=== PATIENT | male | born 1975 | race Caucasian/White ===

== ENCOUNTER 2023-09-08 10:37 | Outpatient (AMB) | payer MEDICAID, SELFPAY ==
--- NOTE | 2023-09-08 11:24 | MHC.PC.OV ---
Vital Signs 09/08/23 11:29 Height 6 ft Weight 195 lb 8 oz BMI 26.5 BP 140/78 H Blood Pressure Location Lt brachial Position Sitting Pulse 73 Pulse Source Pulse Oximeter Pulse Oximetry (%) 98 Oxygen Delivery Method Room Air Intake Visit Reasons: Discharge f/u from clinic Intake Note: Patient is here for follow up from discharge from detox, and states he is living with his son now. He states his blood pressure has been up on down lately. Allergies aspirin [Aspirin] Allergy (Unknown, Unverified 09/08/23 11:33) RASH penicillin G Allergy (Unknown, Verified 09/08/23 11:33) Anaphylaxis Penicillins Allergy (Unknown, Unverified 09/08/23 11:33) ANAPHYLAXIS pineapple [Pineapple] Allergy (Unknown, Unverified 09/08/23 11:33) RASH Medication List - Last Reconciled 09/08/23 by Jose Alfreod Pacheco MD clonidine HCl 0.1 mg PO TID quetiapine 100 mg PO BEDTIME quetiapine mg PO trazodone 100 mg PO BEDTIME Tobacco use date assessed: 09/08/23 Dental Screening Dental Screen Date: 09/08/23 Did you have a dental visit in the last 12 months?: Yes Did you have a dental problem in the last 6 months where you did not have access to dental care?: No Was dental information given to patient?: Patient has dentist HPI Discharge f/u from clinic HPI Details New Patient? ?? Prior PCP:? Last office visit/CPE:? Acute issue(s):? Depression/Anxiety -Denies any SI/HI today. He states he has people he can talk to. Elevated Blood pressure ?? PMHx:?Varicose veins, alcoholism, depression/anxiety SurgHx:? FHx:? SocHx:? PFSH Medical History (Updated 09/08/23 @ 12:06 by Guevara Jones) Varicose veins of both legs with edema Drug dependence Alcoholism Surgical History (Updated 09/08/23 @ 11:41 by Key Davis CMA) S/P tonsillectomy Family History (Updated 09/08/23 @ 11:44 by Key Davis CMA) Mother Cardiovascular disease Varicose veins of both legs with edema Mental health disorder Father Prostate cancer Maternal Uncle Mental health disorder Social History (System 10/23/21 @ 12:54 by Gilma So) Housing: Apartment Patient Tobacco Use Status: Former Tobacco user e-Cigarette/Vaping Use: Never Used service: No Current occupational status: unemployed Cognitive needs: No Hearing needs: No Vision needs: No Questionnaire PHQ-9 Over the last 2 weeks, how often have you been bothered by any of the following problems? 1. Little interest or pleasure in doing things: nearly every day 2. Feeling down, depressed, or hopeless: nearly every day 3. Trouble falling or staying asleep, or sleeping too much: nearly every day 4. Feeling tired or having little energy: nearly every day 5. Poor appetite or overeating: nearly every day 6. Feeling bad about yourself - or that you are a failure or have let yourself or your family down: nearly every day 7. Trouble concentrating on things, such as reading the newspaper or watching television: nearly every day 8. Moving or speaking so slowly that other people could have noticed. Or the opposite - being so fidgety or restless that you have been moving around a lot more than usual: nearly every day 9. Thoughts that you would be better off or of hurting yourself in some way: several days Total score: 25 Depression Screening Interpretation: Positive Depression Screening Done: Yes 87387 - PHQ-9 Billing: Yes Source: Developed by Drs. Martínez Samayoa, Becky Donald, Parmjit Tay and colleagues, with an educational mundo from [employer]. Thrive Questionnaire Date Thrive assessed: 09/08/23 I am a: Patient What is your living situation today?: I have a steady place to live Within the past 12 months, did the food you bought not last and you didn't have the money to get more?: Never true Within the past 12 months, did you worry whether your food would run out before you got money to buy more?: Never true Do you have trouble paying for medicines?: I choose not to answer this question Do you have trouble getting transportation to medical appointments?: I choose not to answer this question Do you have trouble paying your heating and electricity bill?: I choose not to answer this question Do you have trouble taking care of your child, family member or friend?: I choose not to answer this question Do you have trouble with day-to-day activities such as bathing, preparing meals, shopping, managing finances, etc.?: I choose not to answer this question Are you currently unemployed and looking for a job?: I choose not to answer this question Are you interested in more education?: I choose not to answer this question THRIVE Score: 0 AUDIT C Alcohol Use Questionnaire (AUDIT-C) 1. How often do you have a drink containing alcohol?: Monthly or less (Patient stopped after treatment.) 3. How often do you have six or more drinks on one occasion?: Never Total Score: 1 GERARDO-7 AMB Questionnaire GERARDO-7 Date GERARDO - 7 assessed: 09/08/23 Feeling nervous, anxious, or on edge: 3 = Nearly every day Not being able to stop or control worryin = Nearly every day Worrying too much about different things: 3 = Nearly every day Trouble relaxin = Nearly every day Being so restless that it is hard to sit still: 3 = Nearly every day Becoming easily annoyed or irritable: 3 = Nearly every day Feeling afraid as if something awful might happen: 3 = Nearly every day Total GERARDO-7 score (0-4 normal; 5-9 mild; 10-14 moderate; 15-21 severe): 21 Source: Developed by Drs. Martínez Samayoa, Becky Donald, Parmjit Tay and colleagues, with an educational mundo from [employer]. GERARDO-7 Assessment Billing GERARDO-7 Assessment Tool: GERARDO-7 Assessment 57418 Review of Systems Const Denies chills, Denies fatigue, Denies fever(s), Denies headache(s) and Denies weakness ENT Denies dizziness and Denies headache(s) Card Denies chest pain, Denies lightheadedness, Denies dyspnea and Denies other (Palpitations) Resp Denies cough, Denies dyspnea, Denies wheezing and Denies other ( shortness of breath) Musc Denies numbness and Denies tingling Neuro Denies dizziness, Denies headache(s), Denies numbness, Denies tingling, Denies paresthesias and Denies weakness Psych Reports anxiety and Reports depression Endo Denies fatigue Aller/Immun Denies wheezing Physical exam (Primary Care) Vital Signs: Last Vital Signs Pulse 73 06/12/24 11:29 BP 140/78 H 06/12/24 11:29 Pulse Ox 98 09/08/23 11:29 Oxygen Delivery Method Room Air 09/08/23 11:29 BMI result Body Mass Index 26.5 Tobacco/Smoking Status: Tobacco use Status Tobacco use date assessed 09/08/23 09/08/23 11:49 Patient Tobacco Use Status Former Tobacco user 09/08/23 11:49 e-Cigarette/Vaping Use Never Used 09/08/23 11:49 PHQ-9: PHQ-9 Score PHQ-9: Total score 25 09/08/23 11:55 Depression Screening Interpretation: Positive Thrive Assessment: Date of Thrive Assessment Date Thrive assessed 09/08/23 09/08/23 11:49 Const General: no acute distress and well developed Nutritional Appearance: well nourished Orientation/consciousness: patient oriented x3 HENMT Head: Yes normocephalic and Yes atraumatic Eyes General: appearance normal, both eyes and all related structures Pupils: Equal, round and reactive pupils present EOM: EOMs intact bilaterally Resp Effort & Inspection: normal respiratory effort Auscultation: clear to auscultation bilaterally Cardio Rate: regular rate Rhythm: regular rhythm Heart sounds: S1 normal heart sound present, S2 normal heart sound present, no gallops, no murmurs and no rubs Neuro General: patient oriented x3 and gait normal Cranial nerves: Yes Equal, round and reactive pupils present Psych Affect: normal affect Assessment and Plan Assessment & Plan (1) Hypertension: Code(s): I10 - Essential (primary) hypertension Plan: Blood?pressure?is?elevated. Will?start?losartan Patient?recently?through?detox?and?this?may?be?related?to?abstinence?from?alcohol. ?Using?low?dose?losartan?and?we?may?be?able?to?withdraw?this?at?some?point Goal?is?less?than?140/90 (2) Alcoholism: Code(s): F10.20 - Alcohol dependence, uncomplicated Plan: Continue?outpatient?program Referred?to?Psychiatry I?let?him?know?that?we?could?refer?him?to?addiction?medicine?if?needed Continue?clonidine?Seroquel?and?trazodone?as?prescribed (3) Depression with anxiety: Code(s): F41.8 - Other specified anxiety disorders Plan: Significant?depression?and?anxiety?with?some?thoughts?of?SI?but?no?plan. Patient?contracts?for?safety Referred?to?Psychiatry Continue?Seroquel?trazodone?and?clonidine.??Added?hydroxyzine?which?he?had?had?while?in?detox. (4) Varicose veins of both legs with edema: Code(s): I83.893 - Varicose veins of bilateral lower extremities with other complications Plan: Very?large?varicose?veins,?right?versus?left Painful Referred?to?vascular?surgeon (5) Laboratory exam ordered as part of routine general medical examination: Code(s): Z00.00 - Encounter for general adult medical examination without abnormal findings Plan: Check?labs Orders: Orders Microalbumin, Random (w Creat) Today I10 - Essential (primary) hypertension TSH reflex Free T4 Today Z00.00 - Encounter for general adult medical examination without abnormal findings UA and rflx microscopic Today Z00.00 - Encounter for general adult medical examination without abnormal findings Hepatitis B,C Profile Today Z11.3 - Encounter for screening for infections with a predominantly sexual mode of transmission CT NG by PCR Today Z11.3 - Encounter for screening for infections with a predominantly sexual mode of transmission Syphilis Screen Today Z11.3 - Encounter for screening for infections with a predominantly sexual mode of transmission T Spot TB Today Z11.1 - Encounter for screening for respiratory tuberculosis Comprehensive [place]. Panel Fast Today Z00.00 - Encounter for general adult medical examination without abnormal findings Complete Blood Count Auto Diff Today Z00.00 - Encounter for general adult medical examination without abnormal findings Lipid Panel Today Z00.00 - Encounter for general adult medical examination without abnormal findings Prostate Specific Antigen Scr Today Z12.5 - Encounter for screening for malignant neoplasm of prostate HIV Ab/Ag Today Z11.3 - Encounter for screening for infections with a predominantly sexual mode of transmission Hemoglobin A1c Today R73.01 - Impaired fasting glucose Referrals Psychiatry Outpatient Consultation Service F10.20 - Alcohol dependence, uncomplicated, F41.8 - Other specified anxiety disorders Vascular Surgery Referral I83.893 - Varicose veins of bilateral lower extremities with other complications Medications: New losartan 25 mg PO DAILY 30 days 30 tabs 2RF trazodone 100 mg PO BEDTIME 30 days 30 tabs 1RF hydroxyzine HCl 50 mg PO BID 30 days PRN 30 tabs 0RF anxiety clonidine HCl 0.1 mg PO TID 30 days 90 tabs 1RF quetiapine 100 mg PO BEDTIME 90 days 90 tabs 1RF Coding Level of Care Code New Pt Level 4 (66005) Diagnoses Hypertension I10 Alcoholism F10.20 Depression with anxiety F41.8 Varicose veins of both legs with edema I83.893 Laboratory exam ordered as part of routine general medical examination Z00.00 Additional Codes GERARDO-7 Assessment Billing - GERARDO-7 Assessment Tool: GERARDO-7 Assessment 52428 ([id number])
[2023-09-08 11:29] VITALS: BP 140/78; PULSE 73; O2SAT 98; BMI 26.5
== END 2023-09-08 12:24 | disposition home or self-care (01) ==
PROVIDERS: PCP Family Medicine; Visit Provider Family Medicine
DX: I10 Essential (primary) hypertension (principal); F10.20 Alcohol dependence, uncomplicated; F41.8 Other specified anxiety disorders; I83.893 Varicose veins of bilateral lower extremities with other complications
CPT/HCPCS: 96127; 99204

== ENCOUNTER 2023-09-13 09:52 | Outpatient (AMB) | payer OTHER, SELFPAY ==
--- NOTE | 2023-09-13 09:46 | A.OFFPSYCH_ITS ---
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 Allergies aspirin [Aspirin] Allergy (Unknown, Unverified 09/08/23 11:33) RASH penicillin G Allergy (Unknown, Verified 09/08/23 11:33) Anaphylaxis Penicillins Allergy (Unknown, Unverified 09/08/23 11:33) ANAPHYLAXIS pineapple [Pineapple] Allergy (Unknown, Unverified 09/08/23 11:33) RASH Medication List - Last Reconciled 09/13/23 by Iliana Arzate APRN clonidine HCl 0.1 mg PO TID 30 days hydroxyzine HCl 50 mg PO BID PRN 30 days losartan 25 mg PO DAILY 30 days quetiapine mg PO quetiapine 100 mg PO BEDTIME 90 days trazodone 100 mg PO BEDTIME 30 days HPI- Psychiatric Chief Complaint: consult HPI Narrative: Pt is 48 yr old father of 2 children age 18 and 15 referred by [facility] for bridge treatment until he can see psychiatrist at [facility]. Pt presents neatly dressed and well groomed; he is very anxious. He is cooperative. speech is pressured. He reports many years of psychiatric difficulties and alcohol abuse. he says that this episode happened on Mother's day; he says he drank like a maniac. and then became suicidal. his friend called an ambulance and he ended up in inpatient treatment at [facility] for 25 days. He was discharged on seroquel 100mg at bedtime seroquel 25mg TID trazodone 100mg at bedtime, clonidine 0.1 mg TID, Hydroxyzine 50 mg TID. he says he is still anxious every day; he says the clonidine and hydroxyzine do nothing to help his anxiety; he reports sleeping only from 10pm to 1 am even with the seroquel and the trazodone. pt reports frequent nightmares. He repots feeling anxious, nervous, wanting to isolate, can't control if he is happy or sad. he reports feeling great for hours and then suddenly sad. he reports leaving the house and just walking and walking for up to 10 days and then when he feels better he return to the house; he does not know why he does this. He reports 75% of the time he feels depressed, sad, guilty, and grieving, he says people often call him crazy. He reports hearing voices since he was 3 yrs old,. he sees a man in a fancy suit and hears him talking to him, he is critical and often laughing at him. he does not recognize him. he has been seeing the same man talking to him since he was 3 yrs old. His grandmother who raised him would tell him not to listen to the voice. His grandfather was also supportive and told him to try to ignore the voice. He reports he was very hyperactive and sometimes still is. he is easily overwhelmed by yelling, anyone screaming, too much talking, or loud music. he reports he often feels like fighting. He reports impulsive behavior such as burning all his clothes recently when he was angry. He reports losing jobs due to not showing up, throwing things at work, fighting with others at work. He is 30 + days sober now. he wants help and wants to remain sober; he has a sober job coaching and his family is supportive- the mother of his children and his 2 children. He reports he ahs not done blood work yet because he is nervous about needles ; he says he had a lot of blood work at [facility] and he signed a release of info to request records Past Psychiatric History: Many psychiatric hospitalization including at least 3 on M5 in 2010 2011. he reports one intentional overdose on fentanyl in [facility] 2 yrs ago. he was seen in [place] and released. He reports sober from 2011 through 2016. past med trials of celexa abilify and clonazepam- he does not recall any others. Subjective Subjective Subjective Medication Compliance: Yes Side effects from medications: No Review of Systems Medical Review of Systems: unchanged Mental Status Exam Mental Status Exam Patient Appearance: Well Grooomed and Appropriate Patient Orientation: Person, Place, Time and Situation Level of Consciousness: Awake, Appropriate and Alert Patient Behavior: Appropriate, Talkative, Restless and Anxious Mood Description: Anxious and Sad Affect Description: Anxious and Sad Patient Cognition Impaired: No Ability to Follow Directions: Good Speech Pattern: Clear, Appropriate, Excessive and Pressured Memory Description: Episodic Impaired Hallucinations: Auditory (has insight not real) and Visual (has insight not real ) Delusions: Not Present Thought Process: Intact Thought Content: positive for Intact, positive for Racing, positive for Goal Oriented, positive for Preoccupation and positive for Loose Associations Judgement: Fair Assessment and Plan Assessment & Plan (1) Bipolar disorder, current episode mixed: Status: Acute Code(s): F31.60 - Bipolar disorder, current episode mixed, unspecified (2) Post traumatic stress disorder (PTSD): Status: Acute Code(s): F43.10 - Post-traumatic stress disorder, unspecified Plan Plan: seroqule XR 200mg at bedtime seroqule 100mg at bedtime seroqule 25 mg 3 times a day start lithiium 300mg twice a day trazodone 100mg at bedtime Clonidine 0.1mg # times a day as needed stop hydroxyzine 50mg EKG ordered release signed for [facility] and will request records EAEDC form signed return in 2 weeks Medications: New lithium carbonate 300 mg PO BID 60 caps 0RF quetiapine ER (Seroquel XR) 200 mg PO BEDTIME 30 tabs 0RF Orders: Orders ECG 12 lead EKG Today I10 - Essential (primary) hypertension, Z79.899 - Other alf (current) drug therapy Counseling and coordination of Care Pt. Self Management counselin Step program, Maintenance-social rhythm, Mod caffeine/ETOH intake, Sleep hygiene and General coping skills Medication management counseling: Effectiveness, Side effects, Dosing range, Duration, Drug interaction and Adherence Diagnosis and Prognosis Counseling: Accuracy of diagnosis, Prognosis over time, Impact of diagnosis on life functions, Impact of family relationship, Problematic behaviors secondary to diagnosis and Adequacy of current interventions Details: I spent 75 minutes reviewing the record, seeing the patient and documenting in the medical record. Counseling provided to the patient/caregiver as outlined below. Addressed patient/caregiver concerns regarding current medication regime including effective adherence. Addressed patient/caregiver concerns regarding diagnosis and prognosis including accuracy of diagnosis, prognosis over time, impact of diagnosis. Addressed patient/caregiver concerns regarding impact of recent stressors. [facility] Medical History (Updated 09/13/23 @ 14:09 by Iliana Arzate APRN) Varicose veins of both legs with edema Drug dependence Alcoholism Surgical History (Updated 09/08/23 @ 11:41 by Key Davis CMA) S/P tonsillectomy Family History (Updated 09/08/23 @ 11:44 by Key Davis CMA) Mother Cardiovascular disease Varicose veins of both legs with edema Mental health disorder Father Prostate cancer Maternal Uncle Mental health disorder Social History (System 10/23/21 @ 12:54 by Gilma So) Housing: Apartment Patient Tobacco Use Status: Former Tobacco user e-Cigarette/Vaping Use: Never Used service: No Current occupational status: unemployed Cognitive needs: No Hearing needs: No Vision needs: No Social History: lives with mother of his children, his 18 yr old son and 15 yr old dtr. he worked most recently at [employer] but was let go after missing many days of work. pt reports he was literally thrown away by his bio mother; his grandmother rescued him and he was primarily raised by grandparents whom he says treated him well. [place] was raised [place] He did well ins school earning all As despite getting in trouble for being very hyper and fighting all the time. He was recruited by [employer] but bio father refused to let him go. he feels this ruined his life. he then came to [place] with a girlfriend. He has struggled since then. Substance History: episodic alcohol abuse, uses THC 2-3 times a month, used cocaine at age 16 for 2-3 yrs, fentanyl once to hurt himself Trauma History: abandoned by mother Coding Level of Care Code Psych Diag Eval w/Med (94903) Diagnoses Bipolar disorder, current episode mixed F31.60 Post traumatic stress disorder (PTSD) F43.10
== END 2023-09-13 11:01 | disposition home or self-care (01) ==
LOC: HO.HOP 09:52
PROVIDERS: PCP Family Medicine; Visit Provider Clinical Nurse Specialist Psychiatric/Mental Health
DX: F31.60 Bipolar disorder, current episode mixed, unspecified (principal); F43.10 Post-traumatic stress disorder, unspecified
CPT/HCPCS: 90792

== ENCOUNTER → 2023-09-13 09:52 | Outpatient (BNVA) | payer OTHER, SELFPAY | PROVIDERS: PCP Family Medicine; Visit Provider Clinical Nurse Specialist Psychiatric/Mental Health | DX: F31.60 Bipolar disorder, current episode mixed, unspecified (principal); F43.10 Post-traumatic stress disorder, unspecified | CPT/HCPCS: 90792 ==

== ENCOUNTER 2023-11-25 13:25 | Outpatient (AMB) | payer OTHER, SELFPAY ==
--- NOTE | 2023-11-25 13:39 | A.OFFPSYCH_ITS ---
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 Allergies aspirin [Aspirin] Allergy (Unknown, Unverified 09/08/23 11:33) RASH penicillin G Allergy (Unknown, Verified 09/08/23 11:33) Anaphylaxis Penicillins Allergy (Unknown, Unverified 09/08/23 11:33) ANAPHYLAXIS pineapple [Pineapple] Allergy (Unknown, Unverified 09/08/23 11:33) RASH Medication List - Last Reconciled 11/25/23 by Iliana Arzate APRN lithium carbonate 300 mg PO BID losartan 25 mg PO DAILY 30 days quetiapine mg PO quetiapine 100 mg PO BEDTIME 90 days trazodone 100 mg PO BEDTIME 30 days HPI- Psychiatric Chief Complaint: follow up HPI Narrative: In interim, pt went to [facility] after relapsing and taking meds with alcohol; he completed program there and then went to [facility] for 25 days; he s med compliant and taking lithium 300 twice a day, seroquel 125mg daily, naltrexone 50mg daily. he is not taking hydroxyzine as he reports it doesnt help. he s anxious every day, has panic attacks. passive SI no HI no plan or intent Past Psychiatric History: Many psychiatric hospitalization including at least 3 on M5 in 2010 2011. he reports one intentional overdose on fentanyl in [facility] 2 yrs ago. he was seen in Ed and released. He reports sober from 2011 through 2016. past med trials of celexa abilify and clonazepam- he does not recall any others. Subjective Subjective Subjective Medication Compliance: Yes Side effects from medications: No Review of Systems Medical Review of Systems: unchanged Mental Status Exam Mental Status Exam Patient Appearance: Well Grooomed and Appropriate Patient Orientation: Person, Place, Time and Situation Level of Consciousness: Awake and Appropriate Patient Behavior: Appropriate Mood Description: Anxious and Sad Affect Description: Anxious and Sad Patient Cognition Impaired: No Ability to Follow Directions: Good Speech Pattern: Clear and Perseverating Memory Description: Intact Hallucinations: None Thought Process: Intact and Goal Oriented Thought Content: positive for Intact and positive for Goal Oriented Judgement: Fair Assessment and Plan Assessment & Plan (1) half-way use of drug: Status: Acute Code(s): Z79.899 - Other prison (current) drug therapy (2) Post traumatic stress disorder (PTSD): Status: Acute Code(s): F43.10 - Post-traumatic stress disorder, unspecified (3) Bipolar disorder, current episode mixed: Status: Acute Code(s): F31.60 - Bipolar disorder, current episode mixed, unspecified Medications: New olanzapine 2.5 mg PO DAILY 30 tabs 0RF thiamine HCl (vitamin B1) 100 mg PO DAILY 30 tabs 1RF Changed From lithium carbonate 300 mg PO BID 60 caps 0RF To lithium carbonate 600 mg (2 x 300 mg) PO BID 120 caps 1RF Orders: Orders Complete Blood Count Auto Diff 11/25/23 Z79.899 - Other prison (current) drug therapy Vitamin B12 11/25/23 Z79.899 - Other termite control technician (current) drug therapy Folate 11/25/23 Z79.899 - Other prison (current) drug therapy Zenda 11/25/23 Z79.899 - Other prison (current) drug therapy Comprehensive [place]. Panel Fast 11/25/23 Z79.899 - Other prison (current) drug therapy Counseling and coordination of Care Pt. Self Management counseling: Maintenance-social rhythm, Med illness tx adherence, Mod caffeine/ETOH intake, Sleep hygiene, Behavior activation, General coping skills and Problem solving Medication management counseling: Effectiveness, Side effects, Dosing range, Duration, Drug interaction and Adherence Diagnosis and Prognosis Counseling: Accuracy of diagnosis, Prognosis over time, Impact of diagnosis on life functions, Impact of family relationship, Problematic behaviors secondary to diagnosis and Adequacy of current interventions Details: I spent 40 minutes reviewing the record, seeing the patient and documenting in the medical record. Counseling provided to the patient/caregiver as outlined below. Addressed patient/caregiver concerns regarding current medication regime including effective adherence. Addressed patient/caregiver concerns regarding diagnosis and prognosis including accuracy of diagnosis, prognosis over time, impact of diagnosis. Addressed patient/caregiver concerns regarding impact of recent stressors. [facility] Medical History (Updated 09/13/23 @ 14:09 by Iliana Arzate APRN) Varicose veins of both legs with edema Drug dependence Alcoholism Surgical History (Updated 09/08/23 @ 11:41 by Key Davis CMA) S/P tonsillectomy Family History (Updated 09/08/23 @ 11:44 by Key Davis CMA) Mother Cardiovascular disease Varicose veins of both legs with edema Mental health disorder Father Prostate cancer Maternal Uncle Mental health disorder Social History (System 10/23/21 @ 12:54 by Gilma So) Housing: Apartment Patient Tobacco Use Status: Former Tobacco user e-Cigarette/Vaping Use: Never Used service: No Current occupational status: unemployed Cognitive needs: No Hearing needs: No Vision needs: No Social History: lives with mother of his children, his 18 yr old son and 15 yr old dtr. he worked most recently at [employer] but was let go after missing many days of work. pt reports he was literally thrown away by his bio mother; his grandmother rescued him and he was primarily raised by grandparents whom he says treated him well. he was raised n [place] He did well ins school earning all As despite getting in trouble for being very hyper and fighting all the time. He was recruited by [facility] but bio father refused to let him go. he feels this ruined his life. he then came to [place] with a girlfriend. He has struggled since then. Substance History: episodic alcohol abuse, uses THC 2-3 times a month, used cocaine at age 16 for 2-3 yrs, fentanyl once to hurt himself Trauma History: abandoned by mother Coding Level of Care Code Est Pt Level 4 (01110) Diagnoses half-way use of drug Z79.899 Post traumatic stress disorder (PTSD) F43.10 Bipolar disorder, current episode mixed F31.60
== END 2023-11-25 14:02 | disposition home or self-care (01) ==
LOC: HO.HOP 13:25
PROVIDERS: PCP Family Medicine; Visit Provider Clinical Nurse Specialist Psychiatric/Mental Health
DX: F31.60 Bipolar disorder, current episode mixed, unspecified (principal); F43.11 Post-traumatic stress disorder, acute; Z79.899 Other long term (current) drug therapy
CPT/HCPCS: 99214

== ENCOUNTER → 2023-11-25 13:25 | Outpatient (BNVA) | payer OTHER, SELFPAY | PROVIDERS: PCP Family Medicine; Visit Provider Clinical Nurse Specialist Psychiatric/Mental Health | DX: F43.10 Post-traumatic stress disorder, unspecified (principal); F31.60 Bipolar disorder, current episode mixed, unspecified; Z79.899 Other long term (current) drug therapy | CPT/HCPCS: 99212 ==

== ENCOUNTER 2023-12-24 13:41 | Outpatient (AMB) | payer OTHER, SELFPAY ==
--- NOTE | 2023-12-24 14:01 | A.OFFPSYCH_ITS ---
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 Allergies aspirin [Aspirin] Allergy (Unknown, Unverified 09/08/23 11:33) RASH penicillin G Allergy (Unknown, Verified 09/08/23 11:33) Anaphylaxis Penicillins Allergy (Unknown, Unverified 09/08/23 11:33) ANAPHYLAXIS pineapple [Pineapple] Allergy (Unknown, Unverified 09/08/23 11:33) RASH Medication List - Last Reconciled 12/24/23 by Iliana Arzate APRN lithium carbonate 600 mg (2 x 300 mg) PO BID losartan 25 mg PO DAILY 30 days olanzapine 2.5 mg PO DAILY quetiapine mg PO quetiapine 100 mg PO BEDTIME 90 days thiamine HCl (vitamin B1) 100 mg PO DAILY trazodone 100 mg PO BEDTIME 30 days HPI- Psychiatric Chief Complaint: follow up HPI Narrative: mood much improved; pt happy calm, optimistic; no pressured speech; no grandiosity; compliant with meds; no side effects; neatly dressed and grooming improved from last visit. no etoh use. Past Psychiatric History: Many psychiatric hospitalization including at least 3 on M5 in 2010 2011. he reports one intentional overdose on fentanyl in [facility] 2 yrs ago. he was seen in [place] and released. He reports sober from 2011 through 2016. past med trials of celexa abilify and clonazepam- he does not recall any others. Subjective Subjective Subjective Medication Compliance: Yes Side effects from medications: No Review of Systems Medical Review of Systems: unchanged Mental Status Exam Mental Status Exam Patient Appearance: Well Grooomed Patient Orientation: Person, Place, Time and Situation Level of Consciousness: Awake Patient Behavior: Appropriate Mood Description: Calm and Cheerful Affect Description: Calm and Cheerful Patient Cognition Impaired: No Ability to Follow Directions: Good Speech Pattern: Clear Memory Description: Intact Hallucinations: None Delusions: Not Present Thought Process: Intact Thought Content: positive for Intact Judgement: Good Assessment and Plan Assessment & Plan (1) Bipolar disorder, current episode mixed: Status: Acute Qualifiers: Psychotic features: without psychotic features Code(s): F31.60 - Bipolar disorder, current episode mixed, unspecified Plan continue lithium continue clonidine continue seroquel continue zyprexa 2.5 mg for panic attacks, over thinking prn Medications: New thiamine HCl (vitamin B1) 100 mg PO DAILY 30 tabs 0RF clonidine HCl 0.1 mg PO TID 90 tabs 0RF Refilled trazodone 100 mg PO BEDTIME 30 tabs 1RF 30 days Orders: Orders [place] 12/24/23 F31.60 - Bipolar disorder, current episode mixed, unspecified, Z79.899 - Other terminologist (current) drug therapy Comprehensive Met. Panel 12/24/23 Z79.899 - Other terminologist (current) drug therapy, F31.60 - Bipolar disorder, current episode mixed, unspecified TSH reflex Free T4 12/24/23 F31.60 - Bipolar disorder, current episode mixed, unspecified, Z79.899 - Other long-term (current) drug therapy Counseling and coordination of Care Pt. Self Management counseling: Maintenance-social rhythm, Mod caffeine/ETOH intake, Sleep hygiene, Behavior activation, General coping skills and Problem solving Medication management counseling: Effectiveness, Side effects, Dosing range, Duration, Drug interaction and Adherence Diagnosis and Prognosis Counseling: Accuracy of diagnosis, Prognosis over time, Impact of diagnosis on life functions, Impact of family relationship, Problematic behaviors secondary to diagnosis and Adequacy of current interventions Details: I spent 40 minutes reviewing the record, seeing the patient and documenting in the medical record. Counseling provided to the patient/caregiver as outlined below. Addressed patient/caregiver concerns regarding current medication regime including effective adherence. Addressed patient/caregiver concerns regarding diagnosis and prognosis including accuracy of diagnosis, prognosis over time, impact of diagnosis. Addressed patient/caregiver concerns regarding impact of recent stressors. [facility] Medical History (Updated 12/24/23 @ 15:41 by Iliana Arzate APRN) Varicose veins of both legs with edema Drug dependence Alcoholism Surgical History (Updated 09/08/23 @ 11:41 by Key Davis CMA) S/P tonsillectomy Family History (Updated 09/08/23 @ 11:44 by Key Davis CMA) Mother Cardiovascular disease Varicose veins of both legs with edema Mental health disorder Father Prostate cancer Maternal Uncle Mental health disorder Social History (System 10/23/21 @ 12:54 by Gilma So) Housing: Apartment Patient Tobacco Use Status: Former Tobacco user e-Cigarette/Vaping Use: Never Used service: No Current occupational status: unemployed Cognitive needs: No Hearing needs: No Vision needs: No Social History: lives with mother of his children, his 18 yr old son and 15 yr old dtr. he worked most recently at [employer] but was let go after missing many days of work. pt reports he was literally thrown away by his bio mother; his grandmother rescued him and he was primarily raised by grandparents whom he says treated him well. he was raised [place] He did well ins school earning all As despite getting in trouble for being very hyper and fighting all the time. He was recruited by [facility] but bio father refused to let him go. he feels this ruined his life. he then came to [place] with a girlfriend. He has struggled since then. Substance History: episodic alcohol abuse, uses THC 2-3 times a month, used cocaine at age 16 for 2-3 yrs, fentanyl once to hurt himself Trauma History: abandoned by mother Coding Level of Care Code Est Pt Level 4 (41509) Diagnoses Bipolar disorder, current episode mixed F31.60 Psychotic features: without psychotic features
== END 2023-12-24 14:39 | disposition home or self-care (01) ==
LOC: HO.HOP 13:41
PROVIDERS: PCP Family Medicine; Visit Provider Clinical Nurse Specialist Psychiatric/Mental Health
DX: F31.60 Bipolar disorder, current episode mixed, unspecified (principal)
CPT/HCPCS: 99214

== ENCOUNTER → 2023-12-24 13:41 | Outpatient (BNVA) | payer OTHER, SELFPAY | PROVIDERS: PCP Family Medicine; Visit Provider Clinical Nurse Specialist Psychiatric/Mental Health | DX: F31.60 Bipolar disorder, current episode mixed, unspecified (principal); Z71.89 Other specified counseling; Z79.899 Other long term (current) drug therapy | CPT/HCPCS: 99212 ==

== ENCOUNTER 2024-01-05 07:39 | Outpatient (REF) | payer MEDICAID, SELFPAY ==
[2024-01-05 07:52] LABS: MANUAL DIFF FLAG NO
[2024-01-05 08:07] LABS: Basophils Percent Auto 0.8 % (0-2); Eosinophils Absolute Auto 0.3 X10*3/uL (0.0-0.4); Eosinophils Percent Auto 6.7 % (0-4); Hematocrit 46.2 % (42.0-52.0); Hemoglobin 15.5 g/dl (14.0-18.0); Imm Gran Abs Auto 0.01 X10*3/uL (0.00-0.03); Imm Gran Pct Auto 0.2 % (0.0-0.4); Lymphocytes Absolute Auto 1.8 X10*3/uL (1.2-4.9); Lymphocytes Percent Auto 35.5 % (20-40); Mean Corpuscular HGB Conc 33.5 g/dl (31.0-36.0); Mean Corpuscular Hemoglobin 31.7 pg (27.0-33.0); Mean Corpuscular Volume 94.5 fL (80.0-98.0); Mean Platelet Volume 10.2 fL (9.4-12.4); Monocytes Absolute Auto 0.4 X10*3/uL (0.1-1.2); Monocytes Percent Auto 8.7 % (2-11); Neutrophils Absolute Auto 2.4 x10*3/uL (2.0-8.3); Neutrophils Percent Auto 48.1 % (45-73); Platelet Count 200 X10*3/uL (160-400); Red Blood Count 4.89 X10*6/uL (4.60-5.80); Red Cell Distribution Width 12.2 % (11.0-16.0); White Blood Count 4.9 X10*3/uL (4.8-10.8)
[2024-01-05 08:12] LABS: INTERNATIONAL NORM RATIO 0.9 (0.9-1.1); Prothrombin Time 10.5 SEC (10.9-12.4)
[2024-01-05 08:23] LABS: Lithium < 0.10 mmol/L (0.60-1.20)
[2024-01-05 08:35] LABS: Alanine Aminotransferase 49 U/L (0-40); Albumin Level 4.3 g/dL (3.5-5.0); Alkaline Phosphatase 85 U/L (39-117); Anion Gap 12 (12-20); Aspartate Amino Transferase 27 U/L (5-37); Bilirubin Total 0.4 mg/dL (0.0-1.0); Blood Urea Nitrogen 15 mg/dL (9-16); Calcium 9.3 mg/dL (8.4-10.2); Carbon Dioxide 28 mmol/L (22-29); Chloride 106 mmol/L (96-108); Estimated Glomerular Filt Rate > 60; Glucose Fasting 109 mg/dL (60-99); Potassium 3.9 mmol/L (3.3-5.1); Sodium 142 mmol/L (135-145); Total Protein 7.3 g/dL (6.5-8.0)
[2024-01-05 08:50] LABS: Hepatitis A Antibody IgG Nonreactive (Nonreactive); ~Hepatitis A Antibody IgG 0.29 S/CO (0.00-0.99)
[2024-01-05 08:53] LABS: HBS Num1 0.34 mIU/mL (0-7.99); HBc Num1 0.11 S/CO (0.00-0.79); HBsAGNum1 1.01 S/CO (0.00-0.99); HIV AB/AG Nonreactive (Nonreactive); HIV Num 1 0.05 S/CO (0.00-0.99); Hepatitis B Core Antibody Nonreactive (Nonreactive); TSH reflex Free T4 1.61 uIU/mL (0.32-4.0); ~Hepatitis B Surface Antibody NONREACTIVE (Nonreactive); ~Hepatitis C Antibody Nonreactive (Nonreactive)
[2024-01-05 09:06] LABS: Folate 9.8 ng/mL (> or = 4.0); Vitamin B12 350 pg/mL (200-900)
[2024-01-05 10:46] LABS: HBsAGNum2 Nonreactive; HBsAGNum3 Nonreactive; Hepatitis B Surface Antigen NEGATIVE (Negative)
[2024-01-11 13:58] LABS: FIB-ALT 44 U/L (9-46); FIB-Alpha-2-Macroglobulin 134 mg/dL (106-279); FIB-Apolipoprotein A1 133 mg/dL (94-176); FIB-GGT 55 U/L (3-95); FIB-Haptoglobin 144 mg/dL (43-212); FIB-Total Bilirubin 0.3 mg/dL (0.2-1.2); Liver Fibrosis Score 0.12; Liver Fibrosis Stage F0; Nec Inflam Act Grade A0-A1; Reference ID 5153459
== END 2024-01-05 07:40 | disposition home or self-care (01) ==
LOC: HO.LAB 07:39
PROVIDERS: Emergency Medicine; PCP Family Medicine; Visit Provider Clinical Nurse Specialist Psychiatric/Mental Health
DX: Z79.899 Other long term (current) drug therapy (principal); F31.60 Bipolar disorder, current episode mixed, unspecified; F10.20 Alcohol dependence, uncomplicated
CPT/HCPCS: 36415; 80053; 80178; 81596; 82607; 82746; 84443; 85025; 85610; 86704; 86706; 86708; 86803; 87340; 87389

== ENCOUNTER 2024-01-14 13:24 | Outpatient (AMB) | payer OTHER, SELFPAY ==
--- NOTE | 2024-01-14 14:02 | A.OFFPSYCH_ITS ---
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 Allergies aspirin [Aspirin] Allergy (Unknown, Unverified 09/08/23 11:33) RASH penicillin G Allergy (Unknown, Verified 09/08/23 11:33) Anaphylaxis Penicillins Allergy (Unknown, Unverified 09/08/23 11:33) ANAPHYLAXIS pineapple [Pineapple] Allergy (Unknown, Unverified 09/08/23 11:33) RASH Medication List - Last Reconciled 01/14/24 by Iliana Arzate APRN clonidine HCl 0.1 mg PO TID lithium carbonate 600 mg (2 x 300 mg) PO BID losartan 25 mg PO DAILY 30 days olanzapine 2.5 mg PO DAILY quetiapine 100 mg PO BEDTIME 90 days quetiapine 25 mg PO BID quetiapine ER (Seroquel XR) 400 mg (2 x 200 mg) PO QPM thiamine HCl (vitamin B1) 100 mg PO DAILY trazodone 100 mg PO BEDTIME 30 days HPI- Psychiatric Chief Complaint: follow up HPI Narrative: pt not sleeping at all; he reports seeing a man and hearing a man yelling at hime and berating him; He is here today withhis son with whom he lives; son says that he wakes up in the middle of the night to find patient awake and frightened. pt says he will not sllep due to fear and intrusive memeories of past abuse; pt taking medications as prescribed. He did blood work. result reviewed. His lithium level is low but he says he didn't take the HS or the am dose before the blood work because he misunderstood my directions; he was very frightened to get the blood work done but he says it went well - that the manager purchasing did such a good job it was done before he realized. He is reluctant to go back to get lithium rechecked right now. He wants a therapist and wants to go to [facility]. His son is helping him with appts and with ADLS as pt neglects ADLs at times. He also threw out all his clothing impulsively; I talked with patient and son about going to ER if symptoms worsen. Pt will call for an appt with Dr Pacheco and will also call [facility] with the help of his son. Past Psychiatric History: Many psychiatric hospitalization including at least 3 on M5 in 2010 2011. he reports one intentional overdose on fentanyl in [facility] 2 yrs ago. he was seen in Ed and released. He reports sober from 2012 through 2017. past med trials of celexa abilify and clonazepam- he does not recall any others. Subjective Subjective Subjective Medication Compliance: Yes Side effects from medications: No Review of Systems Medical Review of Systems: unchanged Mental Status Exam Mental Status Exam Patient Appearance: Well Grooomed and Appropriate Patient Orientation: Person, Place, Time and Situation Level of Consciousness: Awake and Alert Patient Behavior: Appropriate, Anxious and Fearful Mood Description: Anxious and Labile Affect Description: Anxious and Labile Patient Cognition Impaired: Yes Ability to Follow Directions: Fair Speech Pattern: Clear and Pressured Memory Description: Intact Hallucinations: None Delusions: Not Present Thought Process: Intact and Goal Oriented Thought Content: positive for Intact and positive for Goal Oriented Judgement: Fair Assessment and Plan Assessment & Plan (1) Post traumatic stress disorder (PTSD): Status: Acute Code(s): F43.10 - Post-traumatic stress disorder, unspecified (2) Bipolar disorder, current episode mixed: Status: Acute Qualifiers: Psychotic features: without psychotic features Current episode severity: severe Qualified Code(s): F31.63 - Bipolar disorder, current episode mixed, severe, without psychotic features Code(s): F31.60 - Bipolar disorder, current episode mixed, unspecified Plan Increase seroqule XR to 400mg at bedtime Medications: New quetiapine ER (Seroquel XR) 400 mg (2 x 200 mg) PO QPM 60 tabs 2RF Changed From quetiapine mg PO To quetiapine 25 mg PO BID 60 tabs 2RF Refilled lithium carbonate 600 mg (2 x 300 mg) PO BID 120 caps 1RF quetiapine 100 mg PO BEDTIME 90 tabs 1RF 90 days quetiapine 25 mg PO BID 60 tabs 2RF thiamine HCl (vitamin B1) 100 mg PO DAILY 30 tabs 2RF clonidine HCl 0.1 mg PO TID 90 tabs 0RF trazodone 100 mg PO BEDTIME 30 tabs 1RF 30 days Counseling and coordination of Care Pt. Self Management counseling: Maintenance-social rhythm, Mod caffeine/ETOH intake, Nutrition education and improvement, Sleep hygiene, Substance abuse tx adhere, Behavior activation and General coping skills Medication management counseling: Effectiveness, Side effects, Dosing range, Duration, Drug interaction and Adherence Diagnosis and Prognosis Counseling: Accuracy of diagnosis, Prognosis over time, Impact of diagnosis on life functions, Impact of family relationship, Problematic behaviors secondary to diagnosis and Adequacy of current interventions Details: I spent 45 minutes reviewing the record, seeing the patient and documenting in the medical record. Counseling provided to the patient/caregiver as outlined below. Addressed patient/caregiver concerns regarding current medication regime including effective adherence. Addressed patient/caregiver concerns regarding diagnosis and prognosis including accuracy of diagnosis, prognosis over time, impact of diagnosis. Addressed patient/caregiver concerns regarding impact of recent stressors. [facility] Medical History (Updated 01/14/24 @ 14:12 by Iliana Arzate APRN) Varicose veins of both legs with edema Drug dependence Alcoholism Surgical History (Updated 09/08/23 @ 11:41 by Key Davis [facility]) S/P tonsillectomy Family History (Updated 09/08/23 @ 11:44 by Key Davis [facility]) Mother Cardiovascular disease Varicose veins of both legs with edema Mental health disorder Father Prostate cancer Maternal Uncle Mental health disorder Social History (System 10/23/21 @ 12:54 by Gilma So) Housing: Apartment Patient Tobacco Use Status: Former Tobacco user e-Cigarette/Vaping Use: Never Used service: No Current occupational status: unemployed Cognitive needs: No Hearing needs: No Vision needs: No Social History: lives with mother of his children, his 18 yr old son and 15 yr old dtr. he worked most recently at [employer] but was let go after missing many days of work. pt reports he was literally thrown away by his bio mother; his grandmother rescued him and he was primarily raised by grandparents whom he says treated him well. he was raised n [place] He did well ins school earning all As despite getting in trouble for being very hyper and fighting all the time. He was recruited by [facility] but bio father refused to let him go. he feels this ruined his life. he then came to [place] with a girlfriend. He has struggled since then. Substance History: episodic alcohol abuse, uses THC 2-3 times a month, used cocaine at age 16 for 2-3 yrs, fentanyl once to hurt himself Trauma History: abandoned by mother Coding Level of Care Code Est Pt Level 5 (12335) Diagnoses Post traumatic stress disorder (PTSD) F43.10 Bipolar disorder, current episode mixed, severe, without psychotic features F31.63 Psychotic features: without psychotic features Current episode severity: severe
== END 2024-01-14 14:09 | disposition home or self-care (01) ==
LOC: HO.HOP 13:24
PROVIDERS: PCP Family Medicine; Visit Provider Clinical Nurse Specialist Psychiatric/Mental Health
DX: F43.10 Post-traumatic stress disorder, unspecified (principal); F31.63 Bipolar disorder, current episode mixed, severe, without psychotic features
CPT/HCPCS: 99215

== ENCOUNTER → 2024-01-14 13:24 | Outpatient (BNVA) | payer OTHER, SELFPAY | PROVIDERS: PCP Family Medicine; Visit Provider Clinical Nurse Specialist Psychiatric/Mental Health | DX: F43.10 Post-traumatic stress disorder, unspecified (principal); F31.63 Bipolar disorder, current episode mixed, severe, without psychotic features | CPT/HCPCS: 99212 ==

== ENCOUNTER 2024-04-27 13:24 | Outpatient (AMB) | payer OTHER, SELFPAY ==
--- NOTE | 2024-04-27 13:30 | MHC.OFFVIS ---
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 Pt states that he has very bad VV starting 20 yrs ago. Pt states he was very active and it has affected his activities. States they are causing discoloration and pain. 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 Complaints include pain over varicosities, swelling of lower extremities, cramping, fatigue, and heaviness of the lower extremities. It has been affecting their daily activities including walking, standing, and physical activity. It is noted more so in right leg. He is nondiabetic and is a former smoker. Patient denies any previous venous surgery or injections. Patient denies any history of DVT/ PE. Patient denies any history of phlebitis. Trial of compression includes - elevation and intermittent compression stockings They now present for vascular evaluation regarding their varicose veins. [facility] Medical History Varicose veins of both legs with edema Drug dependence Alcoholism Surgical History S/P tonsillectomy Family History Mother Cardiovascular disease Varicose veins of both legs with edema Mental health disorder Father Prostate cancer Maternal Uncle Mental health disorder Social History Housing: Apartment Patient Tobacco Use Status: Former Tobacco user e-Cigarette/Vaping Use: Never Used service: No Current occupational status: unemployed Cognitive needs: No Hearing needs: No Vision needs: No Review of Systems Const Reports as per HPI and Denies weakness ENT Reports Normal hearing present and Denies dizziness Card Reports as per HPI, Denies chest pain, Denies chest pain at rest, Denies chest pain with activity, Denies dyspnea and Denies dyspnea on exertion Resp Reports as per HPI, Denies cough, Denies dyspnea and Denies dyspnea on exertion GI Reports as per HPI, Denies abdominal pain, Denies nausea and Denies vomiting Musc Denies numbness Skin/Breast Reports as per HPI, Denies erythema and Denies wounds Neuro Reports Normal hearing present, Denies dizziness, Denies numbness, Denies Sensory deficit (Neuro) and Denies weakness Psych Reports no additional complaints Endo Reports no additional complaints Physical Exam Vital Signs: BMI result Body Mass Index 26.4 Const General: healthy appearing and no acute distress Orientation/consciousness: patient oriented x3 HEENT Head: Yes normal to inspection Ears: hearing grossly normal bilaterally Mouth: Normal oral and palatal mucosa present Resp Effort & Inspection: normal respiratory effort and able to speak in complete sentences Auscultation: clear to auscultation bilaterally Cardio Jugular venous distension: no JVD Rate: regular rate Rhythm: regular rhythm Heart sounds: S1 normal heart sound present and S2 normal heart sound present Bruits: no abdominal aortic bruits, no carotid bruits, no femoral bruits and no renal bruits Peripheral pulses: Peripheral pulses 2+ throughout GI Inspection: Yes normal to inspection Palpation (GI): No Abdominal aortic bruit present Skin General skin exam: no rashes or lesions noted Wounds: no wounds Hair: normal Neuro General: patient oriented x3 Cranial nerves: Yes Normal hearing present Cognition (Neuro): normal cognition Gait exam (Neuro): Normal gait present Motor exam (neuro): 5/5 motor strength present throughout Sensory Exam: No Sensory deficit (Neuro) Extrem Other: Right lower extremity: Large rope-like varicosity noted from the medial mid thigh to to the mid burrows. Discoloration noted from mid foot to right above the ankles. Palpable DP pulses. Smaller varicosities noted just [id number] anteriorly and posteriorly. Trace peripheral edema noted. Left lower extremity: Small rope-like varicosity noted in the medial mid thigh. Slight discoloration noted around the ankles. Trace peripheral edema noted. CEAP: C - 4 E - primary A - superficial P - reflux General: Yes normal to inspection, Yes full ROM, Yes capillary refill normal and Yes normal gait Assessment & Plan Assessment & Plan (1) Varicose veins of both lower extremities with inflammation: Code(s): I83.11 - Varicose veins of right lower extremity with inflammation; I83.12 - Varicose veins of left lower extremity with inflammation Category: Medical Plan: Tino is presenting today on a referral from his PCP for ongoing varicose veins, worsening over the last 20 years. In short, the patient has evidence of venous insufficiency. I have discussed the pathophysiology with the patient. In addition I have provided informational material regarding venous disease to the patient. We have discussed conservative measures including compression, elevation, and exercise. We are able to provide him with compression stockings. I have taken the liberty of ordering venous insufficiency testing with the patient. They will follow up with me after testing. The patient had an opportunity to ask questions regarding the treatment plan. All questions were answered. Imaging studies, laboratory studies and physical exam results were discussed and reviewed in detail. No major barriers to understanding were identified. The patient expressed understanding and agreement with the above treatment plan. The patient is aware they should contact our office by phone for worsening of the current condition or the appearance of new symptoms. Thank you for allowing me to participate in the vascular care of this patient. If you have any questions or concerns regarding the treatment for the above condition please do not hesitate to contact me. The office telephone contact is [phone]. This note is constructed using voice recognition software. While every effort has been made to ensure accuracy, fiscal clerk errors may have been included. Thank you for allowing me to participate in the care of your patient. Yours sincerely, RAMON Peterson Orders: Orders US venous duplex LE BI 1 Week I83.11 - Varicose veins of right lower extremity with inflammation, I83.12 - Varicose veins of left lower extremity with inflammation Coding Level of Care Code New Pt Level 4 (52999) Diagnoses Varicose veins of both lower extremities with inflammation I83.11; I83.12
[2024-04-27 13:31] VITALS: BMI 26.4
--- OUTSIDE RECORDS SUMMARY | 2024-04-27 17:19 | XMS_ITS | Clinical Summary ---
Author Organization [employer] Address [address] [place] [address] Care Team Providers Care Drawbench Operator Name Role Phone Unavailable Primary Care Provider Unavailabl e Allergies Active Allergy Reactions Criticality Noted Date Comments Aspirin Hives 09/10/2023 Penicillins Hives 09/10/2023 Pineapple 09/10/2023 Medications * This document contains information received from the source organization and may not represent a complete record from that organization. naltrexone (Depade) 50 MG tabletIndication s:Alcohol use disorder, severe, dependence (CMS/HCC) 1/2 TABLET PO once daily for 1-2 days, then 1 tablet PO daily. May take with food. 30 tablet 1 09/10/2023 Active Active Problems Problem Noted Date Diagnosed Date Bipolar disorder 09/10/2023 Assessment & Plan (09/13/2023 8:19 AM EDT): PROGRESS NOTE: ID: Tino is a 48 y.o. White straight-identified cis-male with MH services including OP Psychotherapy psychopharmacology No previous hx of MH dx or sx who presents for Substance Use Disorder, Anxiety, and Bipolar During IBH Consult Tino presenting with excessive worry/anxiety, difficulty controlling worry, restless/keyed up/On edge, easily fatigued, difficulty concentrating/Mind going blank , irritability, muscle tension, and sleep disturbance difficulty falling asleep and difficulty staying asleep , Abnormally elevated mood, Decreased need for sleep, Flight of ideas, Excessive goal directed activity, and Other: rapid speech, expansive, anger, isolation, mood swings, racing thoughts, and unsuccessful attempt/s to cut down/stop use, cravings and urges to use, continued use, even when it causes interpersonal problems, giving up/reducing important social, occupational, or recreational activities because of use, continued use even when hazardous or dangerous , continued use despite physical or psychological problem (potentially related or made worse by use) , tolerance , in regard to Alcohol and Stimulants ; for a period of 18+ mo, for all symptoms in the context of financial concerns, employment concern, active addiction, lack of psychiatrist treatment. PLAN: Behavioral Health Integration Plan Internal Follow up with [facility] Patient Self Plan Patient to utilize skills provided in intervention , Patient to reach out to [facility] team as needed, Comply with medication , and Patient to engage in OP therapy Severe anxiety 09/10/2023 Alcohol use disorder 09/10/2023 Immunizations Name Administration Dates Next Due Td (adult), 5 Lf tetanus tox oid, preservative free, adsorbed 09/26/2012 Social History Tobacco Use Types Packs/Day Years Used Date Smoking Tobacco: Former Cigarettes Smokeless Tobacco: Never Tobacco Cessation:Counseling Given: Not Answered Alcohol Use Standard Drinks/Week Comments Yes 0 (1 standard drink = 0.6 oz pur e alcohol) Depression Answer Date Recorded Patient Health Questionnaire-9 Score 23 09/10/2023 Patient Health Questionnaire-9 Score 23 09/10/2023 Last PHQ-9: Questionnaire Data Not on file 0 09/10/2023 Depression Answer Date Recorded Patient Health Questionnaire-2 Score 6 09/10/2023 Sex and Gender Information Value Date Recorded Sex Assigned at Male 01/26/2022 10:15 AM EDT Legal Sex Male 10:15 AM EDT Gender Identity Male 02/11/2023 9:54 AM EST Sexual Orientation Straight 02/11/2023 9: 54 AM EST Last Filed Vital Signs Vital Sign Reading Time Taken Comments Blood Pressure 127/77 09/10/2023 8:35 AM EDT Pulse 73 09/10/2023 8:35 AM EDT Temperature 36.4 ??C (97.6 ??F) 09/10/2023 8:35 AM ED T Respiratory Rate - - Oxygen Saturation - - Inhaled Oxygen Concentration - - Weight - - Height - - Body Mass Index - - Plan of Treatment Health Maintenance Due Date Last Done Comments CT Colonography 1973 Colonoscopy 1973 Colorectal Cancer Screening 1973 FIT DNA/Cologuard 1973 FIT 1973 FOBT 1973 Lipid Panel 1973 SDOH Screening 1973 Sigmoidoscopy 1973 Pneumococcal Vaccine: Pediatrics (0 to 5 Years) and At-Risk Patients (6 to 49) Years) (1 of 2 - PCV) 07/01/1979 Alcohol/Substance Use Screening 1985 Family Planning (PISQ) 1988 Hepatitis B Vaccines (1 of 3 - 19+ 3-dose series) 1992 Pneumococcal Vaccine: 50+ Years (1 of 2 - PCV) 1992 DTaP/Tdap/Td Vaccines (1 - Tdap) 09/27/2012 09/26/2012 Zoster Vaccines (1 of 2) 07/01/2023 COVID-19 Vaccine (1 - 2023-2 5 season) 2023 Influenza Vaccine (#1) 2023 Depression Monitoring (PHQ-9) 03/11/2024, 09/10/2023 Depression Screening 09/09/2024 09/10/2023, 09/10/2023 Tobacco Screening 09/09/2024 09/10/2023 RSV Patients and Patients Aged 60 years or older (1 - 1-dose 75+ series) 2048 HIV Screening Completed 01/05/2024 Hepatitis C Screening Completed 01/05/2024 HIB Vaccines Aged Out No longer eligi ble based on patient's age to complete this topic HPV Vaccines Aged Out No longer eligi ble based on patient's age to complete this topic Hepatitis A Vaccines Aged Out No long er eligible based on patient's age to complete this topic IPV Vaccines Aged Out No longer eligi ble based on patient's age to complete this topic Meningococcal Vaccine Aged Out No kanwal irma eligible based on patient's age to complete this topic RSV under 20 months Aged Out No longe r eligible based on patient's age to complete this topic Rotavirus Vaccines Aged Out No longer eligible based on patient's age to complete this topic Procedures Procedure Name Priority Date/Time Associated Diagnosis Comments HEPATITIS C AB W/REFL TO HCV RNA, QN, PCR Routine 01/05/2024 7:47 AM EDT Alcohol use disorder, severe, dependence (CMS/HCC) HIV 1/2 ANTIGEN/ANTIBODY, FOURTH GENERATION W/RFL Routine 01/05/2024 7:47 AM EDT Alcohol use disorder, severe, dependence (CMS/HCC) from Last 3 Months or Most Recently Relevant to Health Maintenance Results * Hepatitis C Antibody with Reflex to HCV, RNA, Quantitative, Real-Time PCR (01/05/2024 7:47 AM EDT) Hepatitis C Antibody Nonreactive Nonreactive [facility] Comment:Antibodies to HCV no t detected; does not exclude early acuteHCV infection. Blood Venous blood specimen / Unknown 01/05/2024 7:47 AM EDT 01/05/2024 7:51 AM EDT us [place] Perez MD LAB BLOOD ORDERABLES Final Res ult [facility] [address] [place] [phone] * HIV-1/2 Antigen and Antibodies, Fourth Generation, with Reflexes (01/05/2024 7:47 AM EDT) HIV AB/AG Nonreactive Nonreactive [facility] Comment:HIV-1 p24 Ag and/or HIV-1/HIV-2 Ab not detected.A test result that is nonreactive does not exclude thepossibility of exposure to or infection with HIV-1 and/orHIV-2. Nonreactive results in this assay for individualswith prior exposure to HIV-1 and/or HIV-2 may be due toantigen and antibody levels that are below the limit ofdetection of this assay.The [employer] HIV Ag/Ab Combo assay result andsupplemental assay results should be interpreted inconjunction with the patient's clinical presentation,history and other laboratory results. If the results areinconsistent with clinical evidence, additional testing issuggested to confirm the result. Blood Venous blood specimen / Unknown 01/05/2024 7:47 AM EDT 01/05/2024 7:51 AM EDT us [place] Perez MD LAB BLOOD ORDERABLES Final Res ult [facility] [address] [place] [address] [phone] from Last 3 Months or Most Recently Relevant to Health Maintenance [facility]
== END 2024-04-27 14:04 | disposition home or self-care (01) ==
PROVIDERS: PCP Family Medicine; Visit Provider Physician Assistant Surgical
DX: I83.11 Varicose veins of right lower extremity with inflammation (principal); I83.12 Varicose veins of left lower extremity with inflammation
CPT/HCPCS: 99204

== ENCOUNTER → 2024-04-27 13:24 | Outpatient (BNVA) | payer OTHER, SELFPAY | PROVIDERS: PCP Family Medicine; Visit Provider Physician Assistant Surgical | DX: I83.11 Varicose veins of right lower extremity with inflammation (principal); I83.12 Varicose veins of left lower extremity with inflammation; Z87.891 Personal history of nicotine dependence | CPT/HCPCS: 99202 ==

== ENCOUNTER 2024-05-12 11:36 | Outpatient (AMB) | payer OTHER, SELFPAY ==
--- NOTE | 2024-05-12 11:36 | A.OFFPSYCH_ITS ---
Intake Intake Visit Reasons: f/u consultation Rig Supervisor Required: No Allergies aspirin [Aspirin] Allergy (Unknown, Unverified 04/27/24 13:34) RASH penicillin G Allergy (Unknown, Verified 04/27/24 13:34) Anaphylaxis Penicillins Allergy (Unknown, Unverified 04/27/24 13:34) ANAPHYLAXIS pineapple [Pineapple] Allergy (Unknown, Unverified 04/27/24 13:34) RASH Medication List - Last Reconciled 05/12/24 by Iliana Arzate APRN celecoxib 200 mg PO BID clonidine HCl 0.1 mg PO TID hydroxyzine HCl 50 mg PO TID lactase 3,000 units PO DAILY lithium carbonate 600 mg (2 x 300 mg) PO BID losartan 25 mg PO DAILY 30 days olanzapine 2.5 mg PO DAILY quetiapine 100 mg PO BEDTIME 90 days quetiapine 25 mg PO BID quetiapine ER (Seroquel XR) 400 mg (2 x 200 mg) PO QPM thiamine HCl (vitamin B1) 100 mg PO DAILY trazodone 100 mg PO BEDTIME 30 days HPI- Psychiatric Chief Complaint: f/u consultation HPI Narrative: pt last seen December 2023. he tells me in the interim he was at [facility] and then in [facility] for 40+ days He would not allow them to adjust his medication and I have no records from them. he reports he continues with the above meds except he is not taking the trazodone. He reports stable mood overall with episodes of anger if pushedby other; he avoids going out of the house; he is lonely; he does not socialize. he sees his son who stays with him and helps him. Pt reports poor sleep with nightmares and talking/yelling in his sleep. He reports avoiding sleep due to the nightmares; he says at [facility] they wanted to try prazosin but he refused at the time. He hears voices at night. He sees the [facility] at [facility]. He currently has tooth nfection and is schedule to have a tooth removed. he says he has not heard from [facility]. We discussed that my consultations are temporary until he can be seen at a clinic and that eventually he needs to have a new provider. he is reluctant to change; we discussed him going to [facility] if [facility] does not have an opening soon. I have asked him to ask his son for helping following through. We discussed need for blood work and he says he will do it on Wednesday. he does not want to change the seroquel because he fears he will feel worse; he agreed to taper the clonodine and try prazosin for the nightmares. He reports compliance with lithium and seroquel ; he says he takes the hydrooxyzine and clonidine but it is like candy...and does nothing. Past Psychiatric History: Many psychiatric hospitalization including at least 3 on M5 in 2010 2011. he reports one intentional overdose on fentanyl in [facility] 2 yrs ago. he was seen in [place] and released. He reports sober from 2011 through 2016. past med trials of celexa abilify and clonazepam- he does not recall any others. Subjective Subjective Subjective Medication Compliance: Yes Side effects from medications: No Review of Systems Medical Review of Systems: unchanged Mental Status Exam Mental Status Exam Patient Appearance: Well Grooomed (he says son tole him to wash up and put on the outfit hes wearing to come to appt- son bought the clothes) and Appropriate Patient Orientation: Person, Place, Time and Situation Level of Consciousness: Awake Patient Behavior: Appropriate, Cooperative and Distractible Mood Description: Anxious and Apprehensive Affect Description: Anxious and Apprehensive Patient Cognition Impaired: No Ability to Follow Directions: Fair Speech Pattern: Clear and Appropriate Memory Description: Intact Hallucinations: Auditory (at night - ptsd like yellling and name being called ) Delusions: Not Present Thought Process: Distracted Thought Content: positive for Loose Associations Judgement: Fair Assessment and Plan Assessment & Plan (1) Post traumatic stress disorder (PTSD): Status: Acute Code(s): F43.10 - Post-traumatic stress disorder, unspecified (2) Bipolar disorder, current episode mixed: Status: Acute Qualifiers: Current episode severity: severe Psychotic features: without psychotic features Qualified Code(s): F31.63 - Bipolar disorder, current episode mixed, severe, without psychotic features Code(s): F31.60 - Bipolar disorder, current episode mixed, unspecified (3) Alcoholism: Status: Acute Code(s): F10.20 - Alcohol dependence, uncomplicated Plan given written direction s for clonidine taper given written direction for prazosin titration labs ordered continue seroquel, lithium, hydroxyzine prn thiamine request records from [facility] collaborate re: referral to [facility] or [facility] Medications: New prazosin Take 1 capsule at night x 3 days then 2 caps at bedtime x 3 days then take 3 caps at bedtime x 7 days then take 4 caps every night orally bedtime; 100 caps 0RF Refilled lithium carbonate 600 mg (2 x 300 mg) PO BID 120 caps 1RF quetiapine ER (Seroquel XR) 400 mg (2 x 200 mg) PO QPM 60 tabs 2RF thiamine HCl (vitamin B1) 100 mg PO DAILY 30 tabs 2RF Discontinued olanzapine Discontinued Reason: Patient Completed Course 2.5 mg PO DAILY 30 tabs 0RF clonidine HCl Discontinued Reason: Patient Completed Course 0.1 mg PO TID 90 tabs 0RF trazodone Discontinued Reason: Patient Completed Course 100 mg PO BEDTIME 30 days 30 tabs 1RF Orders: Orders [place] Today F31.63 - Bipolar disorder, current episode mixed, severe, without psychotic features Vitamin B1 Today F10.20 - Alcohol dependence, uncomplicated, F31.63 - Bipolar disorder, current episode mixed, severe, without psychotic features Lipid Panel Today F31.63 - Bipolar disorder, current episode mixed, severe, without psychotic features, F43.10 - Post-traumatic stress disorder, unspecified Vitamin B12 and Folate Today F31.63 - Bipolar disorder, current episode mixed, severe, without psychotic features Complete Blood Count Auto Diff Today F31.63 - Bipolar disorder, current episode mixed, severe, without psychotic features Counseling and coordination of Care Pt. Self Management counseling: Maintenance-social rhythm, Mod caffeine/ETOH intake, Sleep hygiene, General coping skills and Problem solving Medication management counseling: Effectiveness, Side effects, Dosing range, Duration, Drug interaction and Adherence Diagnosis and Prognosis Counseling: Accuracy of diagnosis, Prognosis over time, Impact of diagnosis on life functions, Impact of family relationship, Problematic behaviors secondary to diagnosis and Adequacy of current interventi ons Details: I spent 45 minutes reviewing the record, seeing the patient and documenting in the medical record. Counseling provided to the patient/caregiver as outlined below. Addressed patient/caregiver concerns regarding current medication regime including effective adherence. Addressed patient/caregiver concerns regarding diagnosis and prognosis including accuracy of diagnosis, prognosis over time, impact of diagnosis. Addressed patient/caregiver concerns regarding impact of recent stressors. [facility] Medical History Varicose veins of both legs with edema Drug dependence Alcoholism Surgical History S/P tonsillectomy Family History Mother Cardiovascular disease Varicose veins of both legs with edema Mental health disorder Father Prostate cancer Maternal Uncle Mental health disorder Social History Housing: Apartment Patient Tobacco Use Status: Former Tobacco user e-Cigarette/Vaping Use: Never Used service: No Current occupational status: unemployed Cognitive needs: No Hearing needs: No Vision needs: No Social History: lives with his 20 yr old son and 18 yr old dtr. he worked most recently at [employer] but was let go after missing many days of work. pt reports he was literally thrown away by his bio mother; his grandmother rescued him and he was primarily raised by grandparents whom he says treated him well. he was raised n [place] He did well ins school earning all As despite getting in trouble for being very hyper and fighting all the time. He was recruited by [facility] [facility] but bio father refused to let him go. he feels this ruined his life. he then came to [place] with a girlfriend. He has struggled since then. Substance History: episodic alcohol abuse, uses THC 2-3 times a month, used cocaine at age 16 for 2-3 yrs, fentanyl once to hurt himself Trauma History: abandoned by mother Coding Level of Care Code Est Pt Level 5 (34238) Diagnoses Post traumatic stress disorder (PTSD) F43.10 Bipolar disorder, current episode mixed, severe, without psychotic features F31.63 Current episode severity: severe Psychotic features: without psychotic features Alcoholism F10.20
--- OUTSIDE RECORDS SUMMARY | 2024-05-12 12:21 | XMS_ITS | Clinical Summary ---
Author Organization [facility] ity Address [address] [place] [address] Care Team Providers Care Drafting Teacher Name Role Phone Unavailable Primary Care Provider Unavailabl e Social History Tobacco Use Types Packs/Day Years Used Date Smoking Tobacco: Never Assessed Sex and Gender Information Value Date Recorded Sex Assigned at Not on file Legal Sex Male 5:19 AM EST Gender Identity Not on file Sexual Orientation Not on file Plan of Treatment Health Maintenance Due Date Last Done Comments DTaP,Tdap,and Td Vaccines (1 - Tdap) 1992 Hepatitis B Vaccines (1 of 3 - 19+ 3-dose series) 1992 Zoster Vaccines (1 of 2) 07/01/2023 COVID-19 Vaccine (1 - 2023-2 5 season) 2023 Influenza Vaccine (#1) 2023 HIB Vaccines Aged Out No longer eligi [...] on patient's age to complete this topic MMR Vaccines Aged Out No longer eligi ble based on patient's age to complete this topic Meningococcal ACWY Vaccine Aged Out N o longer eligible based on patient's age to complete this topic Pneumococcal Vaccine: Pediat rics (0 to 5 Years) and At-Risk Patients (6 to 64 Years) Aged Out No longer eligible b ased on patient's age to complete this topic RSV Immunization Patients Un eli 20 months Aged Out No longer eligible b ased on patient's age to complete this topic Varicella Vaccines Aged Out No longer eligible based on patient's age to complete this topic
--- OUTSIDE RECORDS SUMMARY | 2024-05-12 12:21 | XMS_ITS | Clinical Summary ---
Author Organization [employer] Address [address] [facility] [address] [place] [address] Care Team Providers Care Highway Patrol Pilot Name Role Phone Unavailable Primary Care Provider [...] Health Integration Plan Internal Follow up with [facility] Patient Self Plan Patient to utilize skills provided in intervention , Patient to reach out to [facility] team as needed, Comply with medication , [...] Panel 1973 SDOH Screening 1973 Sigmoidoscopy 1973 Alcohol/Substance Use Screening 1985 Family Planning (PISQ) [...] AM EDT) Hepatitis C Antibody Nonreactive Nonreactive [facility] Comment:Antibodies to HCV no t detected; does not exclude early acuteHCV infection. Blood Venous blood specimen / Unknown 01/05/2024 7:47 AM EDT 01/05/2024 7:51 AM EDT us Hudson Perez MD LAB BLOOD ORDERABLES Final Res ult [facility] [address] [place] [phone] * HIV-1/2 Antigen and Antibodies, Fourth Generation, with Reflexes (01/05/2024 7:47 AM EDT) HIV AB/AG Nonreactive Nonreactive [facility] Comment:HIV-1 p24 Ag and/or HIV-1/HIV-2 Ab not detected.A test result that is nonreactive does not exclude thepossibility of exposure to or infection with HIV-1 and/orHIV-2. Nonreactive results in this assay for individualswith prior exposure to HIV-1 and/or HIV-2 may be due toantigen and antibody levels that are below the limit ofdetection of this assay.The [employer] HIV Ag/Ab Combo assay result andsupplemental assay results should be interpreted inconjunction with the patient's clinical presentation,history and other laboratory results. If the results areinconsistent with clinical evidence, additional testing issuggested to confirm the result. Blood Venous blood specimen / Unknown 01/05/2024 7:47 AM EDT 01/05/2024 7:51 AM EDT us Hudson Perez MD LAB BLOOD ORDERABLES Final Res ult [facility] [address] [place] [phone] from Last 3 Months or Most Recently Relevant to Health Maintenance Insurance [facility] C3
== END 2024-05-12 13:47 | disposition home or self-care (01) ==
PROVIDERS: PCP Family Medicine; Visit Provider Clinical Nurse Specialist Psychiatric/Mental Health
DX: F31.63 Bipolar disorder, current episode mixed, severe, without psychotic features (principal); F10.20 Alcohol dependence, uncomplicated; F43.11 Post-traumatic stress disorder, acute
CPT/HCPCS: 99215

== ENCOUNTER → 2024-05-12 11:36 | Outpatient (BNVA) | payer OTHER, SELFPAY | PROVIDERS: PCP Family Medicine; Visit Provider Clinical Nurse Specialist Psychiatric/Mental Health | DX: F43.10 Post-traumatic stress disorder, unspecified (principal); F31.63 Bipolar disorder, current episode mixed, severe, without psychotic features; F10.20 Alcohol dependence, uncomplicated; Z71.89 Other specified counseling | CPT/HCPCS: 99212 ==

== ENCOUNTER 2025-03-13 14:21 | Outpatient (REF) | payer MEDICAID, SELFPAY ==
[2025-03-13 18:16] LABS: MANUAL DIFF FLAG NO
[2025-03-13 18:26] LABS: Hematocrit 43.3 % (42.0-52.0); Hemoglobin 14.6 g/dl (14.0-18.0); Imm Gran Abs Auto 0.01 X10*3/uL (0.00-0.03); Imm Gran Pct Auto 0.2 % (0.0-0.4); Lymphocytes Absolute Auto 1.8 X10*3/uL (1.2-4.9); Mean Corpuscular HGB Conc 33.7 g/dl (31.0-36.0); Mean Corpuscular Hemoglobin 32.6 pg (27.0-33.0); Mean Corpuscular Volume 96.7 fL (80.0-98.0); NRBC Abs Auto 0.000 X10*3/uL (0.0-0.012); NRBC Pct Auto 0.0 /100WBC (0.0-0.2); Platelet Count 151 X10*3/uL (160-400); Red Blood Count 4.48 X10*6/uL (4.60-5.80); White Blood Count 5.5 X10*3/uL (4.8-10.8)
[2025-03-13 19:00] LABS: Lithium < 0.10 mmol/L (0.60-1.20)
[2025-03-13 19:10] LABS: Alanine Aminotransferase 51 U/L (0-40); Albumin Level 4.7 g/dL (3.5-5.0); Alkaline Phosphatase 75 U/L (39-117); Anion Gap 12 (12-20); Aspartate Amino Transferase 32 U/L (5-37); Blood Urea Nitrogen 21 mg/dL (9-16); Calcium 9.0 mg/dL (8.4-10.2); Carbon Dioxide 24 mmol/L (22-29); Chloride 109 mmol/L (96-108); Estimated Glomerular Filt Rate > 60; Potassium 3.9 mmol/L (3.3-5.1); Sodium 141 mmol/L (135-145); Total Protein 7.4 g/dL (6.5-8.0)
== END 2025-03-13 14:22 | disposition home or self-care (01) ==
LOC: HO.WFDLDS 14:21
PROVIDERS: PCP Family Medicine; Visit Provider Family Medicine
DX: Z00.00 Encounter for general adult medical examination without abnormal findings (principal); F31.63 Bipolar disorder, current episode mixed, severe, without psychotic features; M25.559 Pain in unspecified hip; F41.8 Other specified anxiety disorders; F43.10 Post-traumatic stress disorder, unspecified; F10.20 Alcohol dependence, uncomplicated; I83.11 Varicose veins of right lower extremity with inflammation; I83.12 Varicose veins of left lower extremity with inflammation; M79.661 Pain in right lower leg; M79.89 Other specified soft tissue disorders
CPT/HCPCS: 36415; 80053; 80178; 84443; 85025; 85652; 86141; 96127; 99212

== ENCOUNTER 2025-03-13 14:21 | Outpatient (AMB) | payer MEDICAID, SELFPAY ==
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
[2025-03-13 14:52] VITALS: BP 122/80; PULSE 89; RESP 15; TEMP 37.4; O2SAT 96; BMI 28.0
--- OUTSIDE RECORDS SUMMARY | 2025-03-13 18:37 | XMS_ITS | Clinical Summary ---
Author Organization [employer] Address [address] [place] [address] Care Team Providers Care Insole Taper Name Role Phone Unavailable Primary Care Provider Unavailabl e Allergies Active Allergy Reactions Criticality Noted Date Comments Aspirin Hives 09/10/2023 Penicillins Hives 09/10/2023 Pineapple 09/10/2023 Medications * This document contains information received from the source organization and may not represent a complete record from that organization. naltrexone (Depade) 50 MG tabletIndication s:Alcohol use disorder, severe, dependence (CMS/HCC) (HCC) 1/2 TABLET PO once daily for 1-2 [...] Health Integration Plan Internal Follow up with [facility] Patient Self Plan Patient to utilize skills provided in intervention , Patient to reach out to [facility] team as needed, Comply with medication , and Patient to engage in OP therapy Severe anxiety 09/10/2023 Alcohol use disorder 09/10/2023 Immunizations Immunization Administration Dates Next Due Td (adult), 5 [...] 73 09/10/2023 8:35 AM EDT Temperature 36.4 C (97.6 F) 09/10/2023 8:35 AM EDT Respiratory Rate - - Oxygen Saturation - - Inhaled Oxygen Concentration - - Weight - - Height - - Body Mass Index - - Plan of Treatment Health Maintenance Due Date Last Done Comments CT Colonography 1973 Colonoscopy 1973 Colorectal Cancer Screening 1973 FIT DNA/Cologuard 1973 FIT 1973 FOBT 1973 Lipid Panel 1973 SDOH Screening 1973 Sigmoidoscopy 1973 Disability Screening 1973 Alcohol/Substance Use Screening 1985 Family Planning (PISQ) 1988 Hepatitis B Vaccines (1 of 3 - 19+ 3-dose series) 1992 DTaP/Tdap/Td Vaccines (1 - Tdap) 09/27/2012 09/26/2012 Pneumococcal Vaccine: 50+ Years (1 of 1 - PCV) 07/01/2023 Zoster Vaccines (1 of 2) 07/01/2023 Depression Monitoring 03/11/2024 09/10/2023 , 09/10/2023 Tobacco Screening 09/09/2024 09/10/2023 COVID-19 Vaccine (1 - 2024-2 6 season) 2024 Influenza Vaccine (#1) 2024 RSV Patients and Patients Aged 60 years [...] patient's age to complete this topic Meningococcal B Vaccine Aged Out No l onger eligible based on patient's age to complete [...] AM EDT) Hepatitis C Antibody Nonreactive Nonreactive [facility] Comment:Antibodies to HCV no t detected; does not exclude early acuteHCV infection. Blood Venous blood specimen / Unknown 01/05/2024 7:47 AM EDT 01/05/2024 7:51 AM EDT us Hudson Perez MD LAB BLOOD ORDERABLES Final Res ult [facility] [address] [place] [phone] * HIV-1/2 Antigen and Antibodies, Fourth Generation, with Reflexes (01/05/2024 7:47 AM EDT) HIV AB/AG Nonreactive Nonreactive [facility] Comment:HIV-1 p24 Ag and/or HIV-1/HIV-2 Ab not detected.A test result that is nonreactive does not exclude thepossibility of exposure to or infection with HIV-1 and/orHIV-2. Nonreactive results in this assay for individualswith prior exposure to HIV-1 and/or HIV-2 may be due toantigen and antibody levels that are below the limit ofdetection of this assay.The [employer] HIV Ag/Ab Combo assay result andsupplemental assay results should be interpreted inconjunction with the patient's clinical presentation,history and other laboratory results. If the results areinconsistent with clinical evidence, additional testing issuggested to confirm the result. Blood Venous blood specimen / Unknown 01/05/2024 7:47 AM EDT 01/05/2024 7:51 AM EDT us Hudson Perez MD LAB BLOOD ORDERABLES Final Res ult [facility] [address] [place] [phone] [phone] from Last 3 Months or Most Recently Relevant to Health Maintenance Insurance [facility] C3
--- OUTSIDE RECORDS SUMMARY | 2025-03-13 18:37 | XMS_ITS | Clinical Summary ---
Author Organization [facility] ity Address [address] [place] [address] Care Team Providers Care Anthropology Professor Name Role Phone Unavailable Primary Care Provider [...] 19+ 3-dose series) 1992 Pneumococcal Vaccine: 50+ Ye ars (1 of 1 - PCV) 07/01/2023 Zoster Vaccines (1 of 2) 07/01/2023 Depression Screening 03/29/2024 COVID-19 Vaccine (1 - 2024-2 6 season) 2024 Influenza Vaccine (#1) 2024 RSV Immunization Adult Patie nts (1 - 1-dose 75+ series) 2048 HIB Vaccines Aged Out No longer eligi [...]
== END 2025-03-13 15:35 | disposition home or self-care (01) ==
LOC: HO.HMCFM 14:22
PROVIDERS: PCP Family Medicine; Visit Provider Family Medicine
DX: F41.8 Other specified anxiety disorders (principal); F31.63 Bipolar disorder, current episode mixed, severe, without psychotic features; F43.10 Post-traumatic stress disorder, unspecified; F10.20 Alcohol dependence, uncomplicated; I83.11 Varicose veins of right lower extremity with inflammation; I83.12 Varicose veins of left lower extremity with inflammation; M25.559 Pain in unspecified hip; M79.661 Pain in right lower leg; M79.89 Other specified soft tissue disorders

== ENCOUNTER 2025-03-23 15:45 | Outpatient (REF) | payer MEDICAID, SELFPAY ==
[2025-03-23 17:07] LABS: Appearance Urine Clear; Glucose Urine UA Negative (Negative); PH 5.5 (5.0-9.0); Specific Gravity - Urine 1.015 (1.005-1.025)
[2025-03-23 18:57] LABS: Resp Syncy Virus RNA Qual PCR NEGATIVE (Negative); SARS COV2 PCR INHOUSE NEGATIVE (Negative)
== END 2025-03-23 15:46 | disposition home or self-care (01) ==
LOC: HO.WFDLDS 15:45
PROVIDERS: PCP Family Medicine; Visit Provider Family Medicine
DX: F41.8 Other specified anxiety disorders (principal); F43.10 Post-traumatic stress disorder, unspecified; F31.63 Bipolar disorder, current episode mixed, severe, without psychotic features; M79.661 Pain in right lower leg; M79.89 Other specified soft tissue disorders; R74.8 Abnormal levels of other serum enzymes; F10.20 Alcohol dependence, uncomplicated; B34.9 Viral infection, unspecified; K62.5 Hemorrhage of anus and rectum; Z87.891 Personal history of nicotine dependence
CPT/HCPCS: 81003; 87637; 99212

== ENCOUNTER 2025-03-23 15:45 | Outpatient (AMB) | payer MEDICAID, SELFPAY ==
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
--- OUTSIDE RECORDS SUMMARY | 2025-03-23 15:48 | XMS_ITS | Clinical Summary ---
Author Organization [facility] ity Address [address] [place] [address] Care Team Providers Care Sheet Folder Name Role Phone Unavailable Primary Care Provider [...]
--- OUTSIDE RECORDS SUMMARY | 2025-03-23 15:48 | XMS_ITS | Clinical Summary ---
Author Organization [employer] Address [address] [place] [address] Care Team Providers Care Faculty Dean Name Role Phone Unavailable Primary Care Provider [...] Health Integration Plan Internal Follow up with [facility] Patient Self Plan Patient to utilize skills provided in intervention , Patient to reach out to [facility] team as needed, Comply with [...] AM EDT) Hepatitis C Antibody Nonreactive Nonreactive [facility] Comment:Antibodies to HCV no t detected; does not exclude early acuteHCV infection. Blood Venous blood specimen / Unknown 01/05/2024 7:47 AM EDT 01/05/2024 7:51 AM EDT us Hudson Perez MD LAB BLOOD ORDERABLES Final Res ult [facility] [address] [place] [phone] * HIV-1/2 Antigen and Antibodies, Fourth Generation, with Reflexes (01/05/2024 7:47 AM EDT) HIV AB/AG Nonreactive Nonreactive [facility] Comment:HIV-1 p24 Ag and/or HIV-1/HIV-2 Ab not detected.A test result that is nonreactive does not exclude thepossibility of exposure to or infection with HIV-1 and/orHIV-2. Nonreactive results in this assay for individualswith prior exposure to HIV-1 and/or HIV-2 may be due toantigen and antibody levels that are below the limit ofdetection of this assay.The [employer] HIV Ag/Ab Combo assay result andsupplemental assay results should be interpreted inconjunction with the patient's clinical presentation,history and other laboratory results. If the results areinconsistent with clinical evidence, additional testing issuggested to confirm the result. Blood Venous blood specimen / Unknown 01/05/2024 7:47 AM EDT 01/05/2024 7:51 AM EDT us Hudson Perez MD LAB BLOOD ORDERABLES Final Res ult [facility] [address] [place] [address] [phone] from Last 3 Months or Most Recently Relevant to Health Maintenance Insurance [facility] C3
[2025-03-23 15:55] VITALS: BP 112/78; PULSE 72; RESP 15; TEMP 36.8; O2SAT 98; BMI 27.8
== END 2025-03-23 16:19 | disposition home or self-care (01) ==
LOC: HO.HMCFM 15:46
PROVIDERS: PCP Family Medicine; Visit Provider Family Medicine
DX: F41.8 Other specified anxiety disorders (principal); F43.10 Post-traumatic stress disorder, unspecified; F31.63 Bipolar disorder, current episode mixed, severe, without psychotic features; M79.661 Pain in right lower leg; M79.89 Other specified soft tissue disorders; R74.8 Abnormal levels of other serum enzymes; F10.20 Alcohol dependence, uncomplicated; B34.9 Viral infection, unspecified; K62.5 Hemorrhage of anus and rectum